=== PATIENT | male | born 1970 | race Caucasian/White ===

== ENCOUNTER 2021-04-01 11:46 | Emergency (ER) | payer BC ==
[~2021-04-01] VITALS: Ht 170.2 cm; Wt 70.0 kg
[2021-04-01 11:55] VITALS: BP 120/75
[2021-04-01] MEDS ORDERED: ketorolac trometh. 30mg/ml inj. IM ONE (14:35)
[2021-04-01] MEDS ORDERED: METH4TAB81 PO (14:40)
== END 2021-04-01 14:57 | disposition home or self-care (01) ==
LOC: ER 11:47
DX: S39.012A Strain of muscle, fascia and tendon of lower back, initial encounter (principal); X58.XXXA Exposure to other specified factors, initial encounter; Y93.89 Activity, other specified; Y92.89 Other specified places as the place of occurrence of the external cause; Y99.8 Other external cause status
CPT/HCPCS: 96372; 99283; J1885